=== PATIENT | female | born 1995 | race Hispanic/Latino ===

== ENCOUNTER → 2019-06-25 | Outpatient (CLI) | payer SELFPAY | END | disposition home or self-care (01) | LOC: RAH 13:56 | PROVIDERS: ATTEND Physical Medicine & Rehabilitation | DX: M54.16 Radiculopathy, lumbar region (principal); N83.8 Other noninflammatory disorders of ovary, fallopian tube and broad ligament | CPT/HCPCS: 72148 ==

== ENCOUNTER → 2020-02-08 | Outpatient (CLI) | payer OTHER ==
[~2020-02-08] MED LIST: GADODIAMIDE 10 MMOL/20 ML VIAL IV ONE; IOPAMIDOL 10 ML VIAL ONE
== END | disposition home or self-care (01) ==
LOC: DAH 10:00 → EDSTATUS 13:00
PROVIDERS: ATTEND Physical Medicine & Rehabilitation
DX: M25.552 Pain in left hip (principal)
CPT/HCPCS: 27093; 73723; 77002; A9579; Q9966

== ENCOUNTER → 2025-10-29 | Outpatient (CLI) | payer MEDICAID ==
--- NOTE | 2025-10-30 07:57 | HMCIMG ---
EXAM: CR Thoracic Spine, 2 Views. CLINICAL HISTORY: Pain in the thoracic spine. COMPARISON: None provided. FINDINGS: BONES: No acute fracture or aggressively appearing osseous lesion. ALIGNMENT: Alignment is within normal limits. No significant scoliosis. DISCS / DEGENERATIVE CHANGES: The disc spaces are preserved. SOFT TISSUES: The soft tissues are unremarkable. Visualized lungs richardson are normal. IMPRESSION: No acute thoracic spine abnormality is evident. /Julian
--- NOTE | 2025-10-30 07:57 | HMCIMG ---
EXAM: CR Cervical Spine, 5 Views. CLINICAL HISTORY: Cervicalgia. COMPARISON: None provided. FINDINGS: BONES: No acute fracture or aggressive appearing osseous lesion. DISCS/DEGENERATIVE CHANGES: The disc spaces are preserved. Posterior vertebral body alignment is within normal limits. SOFT TISSUES: No prevertebral soft tissue swelling. The visualized lung apices are clear. IMPRESSION: No acute cervical spine abnormality. /Cathay
== END | disposition home or self-care (01) ==
LOC: RAH 13:25
PROVIDERS: ATTEND Physical Medicine & Rehabilitation
DX: M99.01 Segmental and somatic dysfunction of cervical region (principal); M54.2 Cervicalgia; M54.6 Pain in thoracic spine
CPT/HCPCS: 72050; 72070